=== PATIENT | female | born 1970 | race Two or more races ===

== ENCOUNTER 2024-09-10 23:25 | Emergency (ER) | payer OTHER ==
[~2024-09-10] VITALS: Ht 175.3 cm; Wt 104.3 kg
[2024-09-10] MEDS ORDERED: PRILOSEC OTC20 MG PO (23:42)
== END 2024-09-11 | disposition left against medical advice (07) ==
LOC: ER 09-11 00:03
DX: Z53.21 Procedure and treatment not carried out due to patient leaving prior to being seen by health care provider (principal)